=== PATIENT | female | born 1990 | race Caucasian/White ===

== ENCOUNTER 2022-01-11 00:19 | Emergency (ER) | payer OTHER ==
[~2022-01-11] VITALS: Ht 154.9 cm; Wt 57.2 kg
--- NOTE | 2022-01-11 00:48 | NUR ---
TO ER BED 4. BIBSELF C/O LOWER ABDOMINAL PAIN RADIATING TO THE L SIDE X YESTERDAY. PT DESCRIBES PAIN "STABBING" PAIN 8/10 ON P/S. RELIEVED WITH ADVIL FOR SHORT AMOUNT OF TIME ONLY. WORSE WITH MOVEMENT. PT CHANGED INTO GOWN. CONNECTED TO MONITOR. SARA GALINDO
--- NOTE | 2022-01-11 01:09 | NUR ---
URINE SAMPLE COLLECTED AND SENT TO LAB
--- NOTE | 2022-01-11 01:10 | NUR ---
LAB AT BEDSIDE
[2022-01-11 01:33] LABS: BASOPHILS % (AUTO) 0.5 % (0.0-2.0); EOSINOPHILS % (AUTO) 1.3 % (0.0-6.0); HEMATOCRIT 38 % (33-45); HEMOGLOBIN 12.5 g/dL (11.5-14.8); LYMPHOCYTES # (AUTO) 1.1 K/uL (0.8-4.8); LYMPHOCYTES % (AUTO) 15.6 % (20.0-44.0); MEAN CORPUSCULAR HGB CONC 33 g/dl (31.0-36.0); MEAN CORPUSCULAR VOLUME 90 fL (82-100); MONOCYTES # (AUTO) 0.4 K/uL (0.1-1.30); MONOCYTES % (AUTO) 5.7 % (2.0-12.0); NEUTROPHILS # (AUTO) 5.3 K/uL (1.8-8.9); NEUTROPHILS % (AUTO) 76.9 % (43.0-81.0); PLATELET COUNT (AUTO) 313 K/uL (150-450); RED BLOOD CELL COUNT(AUTO) 4.19 MIL/uL (4.0-5.2); WHITE BLOOD COUNT (AUTO) 6.9 K/uL (4.3-11.0)
[2022-01-11 01:40] LABS: BILIRUBIN,URINE SMALL (NEGATIVE); COLOR,URINE YELLOW (YELLOW); LEUKOCYTE ESTERASE ,URINE NEGATIVE (NEGATIVE); NITRITE, URINE NEGATIVE (NEGATIVE); PROTEIN,URINE NEGATIVE (NEGATIVE); UGLUCOSE NEGATIVE (NEGATIVE); UROBILINOGEN,URINE 0.2 EU/dL (0.2)
[2022-01-11 01:52] LABS: CALCIUM, SERUM 8.8 mg/dL (8.5-10.1); CREATININE 0.5 mg/dL (0.6-1.3); POTASSIUM 3.5 mmol/L (3.5-5.1)
[2022-01-11 01:57] LABS: ALBUMIN 3.6 g/dL (3.4-5.0); BILIRUBIN,DIRECT 0.1 mg/dL (0.0-0.2); BILIRUBIN,TOTAL 0.3 mg/dL (0.2-1.0); TOTAL PROTEIN, SERUM 7.2 g/dL (6.4-8.2)
--- NOTE | 2022-01-11 02:23 | NUR ---
us tech at bed side
[2022-01-11] MEDS ORDERED: KETOROLAC TROMETHAMINE INJ 30 MG/ML VIAL IV ONE (03:00)
[2022-01-11] MEDS ORDERED: IOHEXOL-300 100 ML VIAL IV ONE (03:07)
[2022-01-11] MEDS ORDERED: IV NS 0.9% 250 ML IV ONE (03:07)
--- NOTE | 2022-01-11 03:09 | NUR ---
IV LINE ESTABLISHED, RAC 18G
--- NOTE | 2022-01-11 03:10 | NUR ---
COVID ANTIGEN SWAB COLLECTED AND SENT TO LAB
[2022-01-11] MEDS ORDERED: KETOROLAC TROMETHAMINE INJ 30 MG/ML VIAL ONE (03:14)
--- NOTE | 2022-01-11 03:15 | NUR ---
PT TAKEN FOR CT SCAN
[2022-01-11] MEDS ORDERED: IV NS 0.9% 1,000 ML IV ONE (04:00)
--- NOTE | 2022-01-11 04:29 | NUR ---
CLINICAL INFO GIVEN TO NETTA REDD [facility], OVER THE PHONE
--- NOTE | 2022-01-11 05:28 | NUR ---
PT IS RESTING COMFORTABLY IN BED, SLEEPING BUT EASILY AROUSABLE. WILL CONTINUE TO MONITOR.
[2022-01-11] MEDS ORDERED: AMOX-430 PO (05:39)
--- NOTE | 2022-01-11 05:52 | NUR ---
IV removed. Catheter intact and site benign. Pressure and 4x4 applied to site. No bleeding noted.
[2022-01-11 05:53] VITALS: BP 110/65
--- NOTE | 2022-01-11 05:53 | NUR ---
Patient discharged to home in stable condition. Written and verbal after care instructions given. Patient verbalizes understanding of instruction.
[2022-01-11] MEDS ORDERED: AMOX/CLAVULANATE 875 MG TABLET PO ONE (06:00)
== END 2022-01-11 05:53 | disposition home or self-care (01) ==
LOC: ER 00:24
DX: K52.9 Noninfective gastroenteritis and colitis, unspecified (principal); Z20.822 Contact with and (suspected) exposure to COVID-19; M25.50 Pain in unspecified joint
CPT/HCPCS: 36415; 74177; 76856; 80048; 80076; 81003; 84703; 85025; 87081; 87426; 96361; 96374; 99284; C9803; J1885; J7030; J7050; Q9967; J3490

== ENCOUNTER 2022-01-19 18:16 | Emergency (ER) | payer BC, OTHER ==
[~2022-01-19] VITALS: Ht 154.9 cm; Wt 59.9 kg
[~2022-01-19 18:16] MED LIST: AMOX-430 PO
--- NOTE | 2022-01-19 18:27 | NUR ---
BIBS C/O ABOMINAL PAIN 06/17 ON PS. PT WAS HERE ON 01/11 AND WAS DIAGNOSED WITH ENTERITIS AND SENT HOME WITH ANTIBIOTIC BUT IT DID NOT HELP. PT WENT TO PRIMARY CARE PROVIDER TODAY AND HER NOTED MORE SWELLING THAN USUALLY WHICH CAUSED CONCERNED FOR HER. AWAITING MD GALINDO.
[2022-01-19 18:30] VITALS: BP 130/72
--- NOTE | 2022-01-19 18:31 | NUR ---
CHIKIS SINGLETON AT BEDSIDE FOR EVAL
--- NOTE | 2022-01-19 18:38 | NUR ---
IV ESTABLISHED R AC 20G. BLOOD DRAWN AND COLLECTED AT BEDSIDE. CONVERTED TO SALINE LOCK.
--- NOTE | 2022-01-19 18:39 | NUR ---
PT UNLABLE TO PROVIDE URINE AT THIS TIME. PT PROVIDED WITH URINE SAMPLE CUP.
[2022-01-19] MEDS ORDERED: MORPHINE SULFATE INJ 4 MG/ML DISP.SYRIN ONE (18:43)
[2022-01-19] MEDS ORDERED: ONDANSETRON HCL/PF 4 MG/2 ML VIAL ONE (18:43)
[2022-01-19] MEDS ORDERED: IV NS 0.9% 1,000 ML BAG IV ONE ×2 (19:00)
[2022-01-19] MEDS ORDERED: ONDANSETRON HCL/PF 4 MG/2 ML VIAL IVP ONE (19:00)
[2022-01-19] MEDS ORDERED: PIPERACILLIN /TAZOBACTAM 3.375 G in IV D5W 50 ML IV ONE (19:00)
[2022-01-19] MEDS ORDERED: MORPHINE SULFATE INJ 2 MG/ML DISP.SYRIN IV ONE (19:00)
--- NOTE | 2022-01-19 19:02 | NUR ---
NS .9% 1000ML TOTAL ADMIN 2000ML RAC #20G STOP TIME [id number]
--- NOTE | 2022-01-19 19:02 | NUR ---
BARBARA 3.375G RAC #20G S/L STOP TIME 1931
[2022-01-19] MEDS ORDERED: IV NS 0.9% 250 ML IV ONE (19:18)
[2022-01-19] MEDS ORDERED: IOHEXOL-300 100 ML VIAL IV ONE (19:18)
[2022-01-19] MEDS ORDERED: CT SWABBABLE VALVE TRANS SET 1 EA INFUS.SET MC ONE (19:18)
--- NOTE | 2022-01-19 19:41 | NUR ---
XRAY AT BEDSIDE
[2022-01-19 19:43] LABS: CALCIUM, SERUM 9.2 mg/dL (8.5-10.1); CREATININE 0.6 mg/dL (0.6-1.3); POTASSIUM 4.2 mmol/L (3.5-5.1)
[2022-01-19 19:50] LABS: ALBUMIN 3.8 g/dL (3.4-5.0); BILIRUBIN,TOTAL 0.1 mg/dL (0.2-1.0); TOTAL PROTEIN, SERUM 7.1 g/dL (6.4-8.2)
[2022-01-19 19:57] LABS: BASOPHILS # (AUTO) 0.1 K/uL (0.0-0.2); BASOPHILS % (AUTO) 1.1 % (0.0-2.0); EOSINOPHILS % (AUTO) 2.1 % (0.0-6.0); HEMATOCRIT 37 % (33-45); HEMOGLOBIN 12.7 g/dL (11.5-14.8); LYMPHOCYTES % (AUTO) 36.1 % (20.0-44.0); MEAN CORPUSCULAR HGB CONC 34 g/dl (31.0-36.0); MEAN CORPUSCULAR VOLUME 89 fL (82-100); MONOCYTES # (AUTO) 0.6 K/uL (0.1-1.30); MONOCYTES % (AUTO) 6.8 % (2.0-12.0); NEUTROPHILS # (AUTO) 4.5 K/uL (1.8-8.9); NEUTROPHILS % (AUTO) 53.9 % (43.0-81.0); PLATELET COUNT (AUTO) 413 K/uL (150-450); RED BLOOD CELL COUNT(AUTO) 4.18 MIL/uL (4.0-5.2); WHITE BLOOD COUNT (AUTO) 8.4 K/uL (4.3-11.0)
--- NOTE | 2022-01-19 20:35 | NUR ---
REGULATORY AFFAIRS ASSOCIATE AT PT'S BEDSIDE
[2022-01-19 21:59] LABS: BILIRUBIN,URINE NEGATIVE (NEGATIVE); COLOR,URINE YELLOW (YELLOW); LEUKOCYTE ESTERASE ,URINE NEGATIVE (NEGATIVE); NITRITE, URINE POSITIVE (NEGATIVE); PROTEIN,URINE NEGATIVE (NEGATIVE); UGLUCOSE NEGATIVE (NEGATIVE); UROBILINOGEN,URINE 0.2 EU/dL (0.2)
[2022-01-19 22:05] LABS: WBC,URINE 0-2 /HPF (0-3)
[2022-01-19 22:06] LABS: BACTERIA,URINE None seen /HPF (None Seen); SQUAMOUS EPITHELIAL CELL,UR 0-2 /HPF (None Seen); URINE AMORPHOUS PHOSPHATES Moderate /HPF (None Seen)
--- NOTE | 2022-01-19 23:41 | NUR ---
Patient does not wish to proceed with medical care recommended by CHIKIS Bryant. Patient given information related to possible complications, up to and including , which could occur as a result of leaving the hospital at this time. Patient verbalizes understanding of risks involved due to leaving against medical advice. Patient refused to sign AMA form. IV removed. Catheter intact and site benign. Pressure and 4x4 applied to site. No bleeding noted.
--- NOTE | 2022-01-28 19:02 | NUR ---
Kaelyn solorzano in [place] - 01/28/22 at 1948 by PAM BARBARA 3.375G RAC #20G S/L STOP TIME 1931
== END 2022-01-20 02:15 | disposition left against medical advice (07) ==
LOC: ER 18:21
DX: K56.609 Unspecified intestinal obstruction, unspecified as to partial versus complete obstruction (principal); A41.9 Sepsis, unspecified organism; K65.9 Peritonitis, unspecified; R63.0 Anorexia; Z68.24 Body mass index [BMI] 24.0-24.9, adult; R11.2 Nausea with vomiting, unspecified
CPT/HCPCS: 36415; 71045; 74177; 80048; 80076; 81001; 83605; 83690; 84145; 84484; 85025; 85652; 85730; 86140; 87040 ×2; 87077; 87081; 87086; 87186; 87426; 93005; 96361; 96365; 96375; 99291; C9803; J2270; J2405; J2543; J7030; J7050; J7060; Q9967